=== PATIENT | female | born 1960 | race Caucasian/White ===

== ENCOUNTER 2018-07-28 01:20 | Outpatient (CLI) ==
[2014-07-22 06:07] VITALS: BMI 35.9
== END 2018-07-28 01:21 | disposition home or self-care (01) ==
LOC: AMBL 01:20
PROVIDERS: ATTEND Family Medicine
DX: R42 Dizziness and giddiness (principal); E11.65 Type 2 diabetes mellitus with hyperglycemia; R50.9 Fever, unspecified; I10 Essential (primary) hypertension